=== PATIENT | male | born 1985 | race Caucasian/White ===

== ENCOUNTER 2016-12-08 20:41 | Emergency (ER) | payer OTHER, MEDICAID ==
[2016-12-08 20:50] VITALS: BP 123/90; BMI 31.1
[2016-12-08] MEDS ORDERED: KEFLEX CAP 500 MG PO ONE ×2 (21:30→21:44)
[2016-12-08] MEDS ORDERED: TYLENOL #3 TAB (W/CODEINE) PO ONE ×2 (21:30→21:44)
--- NOTE | 2016-12-08 21:36 | DR.GENAD ---
HPI - PCP Primary Care Physician: nfd - HPI Comment HPI Comment: MR PATIENT WHO REPEATEDLY HIT HIS EARS AND HEAD WHEN HE IS UPSET IS IN ED WITH HIS AUNT WITH BRUISED AROUND SWOLLEN EARS WITH ABRASIONS THAT APPEAR TO BE INFECTED. SCALP IS ALSO BRUISE BEHIND EARS. PATIENT IS COMPLAING OF HEADACHE AHD PAIN TO THE EARS. NO FEVER. - Complaint/Symptoms Chief Complaint Doctors Comments: TRAUMA TO THE HEAD AND EARS. Chief Complaint:: pt's aunt states" he hit's himself in the head all the time. but he doesn't wear a helmet or anything" pt has califlower ears bruising too face noted as well as both ears - Nurses notes reviewed Nurses Notes Review: Yes - Source History Provided: Patient - Mode of Arrival Mode of Arrival: Ambulatory - Timing Onset of Chief Complaint: 12/08/16 Came on: Suddenly - Duration Duration: Constant Duration: Hours - Severity Severity: Moderate PMH - PMH Past Medical History: Yes Past Medical History Comment: severe MR Past Surgical History: No - Family History History of Family Medical Conditions: No - Social History Does any household member use tobacco: No Do you use any recreational Drugs:: No Lives With: Family Lives Where: Home - infectious screening In the last 2 months have you had wt loss of >10#?: NO Have you had fever, night sweats or hemotysis?: No Have you traveled outside the country in the last 6 months?: No Isolation: Standard ROS - Review of Systems Constitutional: No Symptoms Reported Eyes: No Symptoms Reported ENTM: Ear Pain (EXTERNAL EAR MARKEDLY SWOLLEN, RED AND BRUISE.) Respiratoy: No Symptoms Reported Cardiovascular: No Symptoms Reported, Other (MENTALLY CHALLENGE PATIENT.) Gastrointestinal/Abdominal: No Symptoms Reported Genitourinary: No Symptoms Reported Neurological: Headache Musculoskeletal: Other (SCALP PAIN AND BRUISING.) Integumentary: Bruises (ABRASIONS EARS), Other All Other Systems: Reviewed and Negative Unable to Obtain Due To: Altered mental status PE - Vital Signs Vitals: Temperature 98.6 F Pulse Rate 112 Respiratory Rate 18 Blood Pressure 123/90 O2 Sat by Pulse Oximetry 99 - General Limitations: Other (MENTALLY CHALLENGE.) General Appearance: Alert - Head Head Exam: Other (SCALP BUISR LAT ASPECTS.) - Eyes Eye exam: Normal Appearance - ENT ENT Exam: Other (TM NOT VISUALIZE. EXTERNAL EARS SWOLLEN, RED AND BRUISE. EAR CANNALS SWOLLEN.) External Ear Exam: Auricular Trauma, Pain with Movement, External Tenderness. negative: Mastoid Tenderness Nose Exam: Normal Nose Exam Mouth Exam: Normal Inspection Throat Exam: Normal Inspection - Neck Neck Exam: Trachea Midline. negative: Tenderness - Chest Chest Inspection: Symmetric Chest Wall Rise - Respiratory Respiratory Exam: Normal Lung Sounds Bilat Respiratory Exam: Bilateral Clear to Auscultation - Cardiovascular Cardiovascular Exam: Regular Rate, Normal Rhythm, Normal Heart Sounds - Abdominal Exam Abdominal Exam: Normal Inspection - Extremities Extremities Exam: Normal Inspection - Back Back Exam: Normal Inspection - Neurologic Neurological Exam: Alert - Psychiatric Psychiatric Exam: Anxious - Skin Skin Exam: Erythema MDM - Additional Information Additional Information Obtained From: Family - Differential Diagnosis Differential Diagnosis: HEAD TRAUMA, EAR CONTUSION, OTITIS EXTERNAL. Course - Treatment Treatment: SEE ORDERS. - Education/Counseling Education/Counseling: Patient, Family, Education Educated On: Treatment, Diagnosis, Needs for Follow Up ROR - XRAY XRAY Interpreted by: Radiologist XRAY Findings: REPORT DISCUSS WITH PATIENT AND HIS AUNT. - Diagnosis Discharge Problem: Contusion of ear (auricle) Qualifiers: Encounter type: initial encounter Laterality: left Qualified Code(s): S00.432A - Contusion of left ear, initial encounter Contusion of ear canal Qualifiers: Encounter type: initial encounter Laterality: right Qualified Code(s): S00.431A - Contusion of right ear, initial encounter Otitis externa of both ears Qualifiers: Otitis externa type: noninfectious Noninfectious otitis externa type: other type Chronicity: acute Qualified Code(s): H60.593 - Other noninfective acute otitis externa, bilateral Scalp contusion Qualifiers: Encounter type: initial encounter Qualified Code(s): S00.03XA - Contusion of scalp, initial encounter Head trauma Qualifiers: Encounter type: initial encounter Qualified Code(s): S09.90XA - Unspecified injury of head, initial encounter - Discharge Plan Disposition: 01 HOME, SELF-CARE Condition: Stable Prescriptions: Cephalexin [KEFLEX CAP 500 MG *] 500 mg PO QID #40 cap Ibuprofen [MOTRIN TAB 800 MG *] 800 mg PO BID PRN #21 tab PRN Reason: Pain/Inflammation - Follow ups/Referrals Follow ups/Referrals: NFD,None [Primary Care Provider] - 3 days - Instructions Instructions: Otitis Externa, Contusion, [id number] Additional Instructions: RETURN TO ED IF WORSE.
--- NOTE | 2016-12-08 21:53 | CT ---
HEAD CT WITHOUT IV CONTRAST CLINICAL INDICATION: Self-inflicted trauma TECHNIQUE: Axial CT images from skull base to vertex without IV contrast.Dose reduction techniques i ncluding Automated Exposure Control (AEC) and adjustment of mA and kV were utlized. COMPARISON: None FINDINGS: There is no abnormal brain parenchymal density. There is no evidence of acute infarction, intracran ial hemorrhage, mass or mass effect, or abnormal extra-axial collection. The density of the larger d ural venous sinuses is normal. The ventricles are normal in size, shape and position. The skull base and calvarium are normal. The included paranasal sinuses and mastoid air cells are predominantly cl ear. Marked hypertrophy of the soft tissue the ears the laterally. IMPRESSION: 1. No acute intracranial abnormality. 2. Marked hypertrophy of the soft tissue of the ears bilaterally. Correlate with physical examinatio n. Reported By:
[2016-12-08] MEDS ORDERED: MOTRIN TAB 800 MG PO ONE ×2 (22:15→22:23)
== END 2016-12-08 22:29 | disposition home or self-care (01) ==
LOC: ER 20:41
DX: S00.432A Contusion of left ear, initial encounter (principal); S00.431A Contusion of right ear, initial encounter; H60.593 Other noninfective acute otitis externa, bilateral; S00.03XA Contusion of scalp, initial encounter; S09.8XXA Other specified injuries of head, initial encounter; X58.XXXA Exposure to other specified factors, initial encounter; Y92.9 Unspecified place or not applicable
CPT/HCPCS: 70450; 99282

== ENCOUNTER 2016-12-11 15:37 | Emergency (ER) | payer OTHER, MEDICAID ==
[2016-12-11 15:46] VITALS: BP 118/92; BMI 41.0
--- NOTE | 2016-12-11 16:10 | DR.GENAD ---
HPI - PCP Primary Care Physician: steven - Complaint/Symptoms Chief Complaint Doctors Comments: Patient is reported to have mental retardation and lives with his mother. Family member states that child is not care for properly. He has medication for his medical condition and it is reported that mom is not giving patient his medication. He hits himself often. His ear are big because of repeated hitting himself with his hands. Today his right ear lobe burst. Chief Complaint:: family stated that the patient is and he hits his self alot. today he hit hisself in the right ear and it busted. - Source History Provided: Patient, Family Member - Mode of Arrival Mode of Arrival: Ambulatory - Timing Onset of Chief Complaint: 12/11/16 PMH - PMH Past Medical History: No Past Medical History Comment: Past Surgical History: No - Family History History of Family Medical Conditions: No - Social History Does patient currently use any type of tobacco product: No Have you used tobacco products in the last 12 months: No Type of Tobacco Use: None Does any household member use tobacco: No Alcohol Use: None Do you use any recreational Drugs:: No Lives With: Family Lives Where: Home - infectious screening In the last 2 months have you had wt loss of >10#?: NO Have you had fever, night sweats or hemotysis?: No Have you traveled outside the country in the last 6 months?: No Isolation: Standard ROS - Review of Systems Constitutional: No Symptoms Reported Eyes: No Symptoms Reported ENTM: No Symptoms Reported, Ear Pain Respiratoy: No Symptoms Reported Cardiovascular: No Symptoms Reported Gastrointestinal/Abdominal: No Symptoms Reported Genitourinary: No Symptoms Reported Neurological: No Symptoms Reported Musculoskeletal: No Symptoms Reported, Other (Right lobe lacerated) Integumentary: No Symptoms Reported Hematologic/Lymphatic: No Symptoms Reported Endocrine: No Symptoms Reported Psychiatric: No Symptoms Reported All Other Systems: Reviewed and Negative PE - Vital Signs Vitals: Temperature 98.6 F Pulse Rate 101 Respiratory Rate 16 Blood Pressure 118/92 O2 Sat by Pulse Oximetry 99 - General Limitations: No Limitations General Appearance: Alert, In No Apparent Distress - Head Head Exam: Normal Inspection, Atraumatic - Eyes Eye exam: Normal Appearance, PERRL, EOMI - ENT ENT Exam: Normal Exam, Normal Oropharynx, Normal External Ear Exam External Ear Exam: Auricular Trauma (4cm superficial laceration) TM/Canal Exam: Bilateral Normal Nose Exam: Normal Nose Exam Mouth Exam: Normal Inspection Throat Exam: Normal Inspection - Neck Neck Exam: Normal Inspection, Full ROM - Chest Chest Inspection: Normal Inspection - Respiratory Respiratory Exam: Normal Lung Sounds Bilat Respiratory Exam: Bilateral Clear to Auscultation - Cardiovascular Cardiovascular Exam: Regular Rate, Normal Rhythm - Abdominal Exam Abdominal Exam: Normal Inspection Abdominal Tenderness: negative: RUQ, RLQ, LUQ, LLQ, Epigastrium, Suprapubic, Diffuse, Mild, Moderate, Severe, Other - Extremities Extremities Exam: Normal Inspection - Back Back Exam: Normal Inspection, Full ROM - Neurologic Neurological Exam: Alert, Oriented X3, CN II-XII Intact - Psychiatric Psychiatric Exam: Flat Affect - Skin Skin Exam: Warm, Dry Procedures - Laceration/Wound Repair Right Ear Wound Length (cm): 4 Wound's Depth, Shape: Superficial, Linear Wound Explored: clean Betadine Prep?: Yes Wound Repaired With: Steri-strips, Dermabond - Diagnosis Discharge Problem: Injury, self-inflicted Contusion of right ear Qualifiers: Encounter type: initial encounter Qualified Code(s): S00.431A - Contusion of right ear, initial encounter - Discharge Plan Condition: Stable - Follow ups/Referrals Follow ups/Referrals: PORTER MUIR [Primary Care Provider] - 3 days - Instructions
== END 2016-12-11 19:24 | disposition home or self-care (01) ==
LOC: ER 15:37
PROC: 09Q00ZZ Repair Right External Ear, Open Approach (ICD-10-PCS; principal; 2016-12-11)
DX: S00.431A Contusion of right ear, initial encounter (principal); X83.8XXA Intentional self-harm by other specified means, initial encounter
CPT/HCPCS: 99282